=== PATIENT | female | born 1945 | race American Indian/Alaskan Native ===

== ENCOUNTER 2022-07-27 14:45 | Outpatient (CLI) | payer MEDICARE | END 2022-07-27 23:59 | disposition critical access hospital (66) | LOC: EMS 14:45 | DX: R47.01 Aphasia (principal); R29.898 Other symptoms and signs involving the musculoskeletal system | CPT/HCPCS: A0425; A0427 ==

== ENCOUNTER 2022-07-27 15:15 | Emergency (ER) | payer MEDICARE ==
[2022-07-27 15:29] LABS: BASOPHILS % (AUTO) 0.3 %; EOSINOPHILS % (AUTO) 0.5 %; HCT - HEMATOCRIT 44.1 % (37.0-47.0); HGB - HEMOGLOBIN 13.9 g/dL (12.0-16.0); LYMPHOCYTES # (AUTO) 1.6 10^3/uL (1.5-3.5); LYMPHOCYTES % (AUTO) 21.5 %; MEAN CORPUSCULAR HEMOGLOBIN 28.5 pg (27.0-31.0); MEAN CORPUSCULAR HGB CONC 31.5 g/dL (32.0-36.0); MEAN CORPUSCULAR VOLUME 90.4 fL (81.0-99.0); MONOCYTES # (AUTO) 0.6 10^3/uL (0.0-1.0); MONOCYTES % (AUTO) 7.6 %; NEUTROPHILS # (AUTO) 5.3 10^3/uL (1.5-6.6); NEUTROPHILS % (AUTO) 69.8 %; PLT - PLATELET COUNT 265 10^3/uL (130-450); RED BLOOD COUNT 4.88 10^6/uL (4.20-5.40); RED CELL DISTRIBUTION WIDTH 13.2 % (12.0-15.0); WHITE BLOOD COUNT 7.6 x10^3/uL (4.8-10.8)
--- NOTE | 2022-07-27 15:32 | ED Physician Documentation ---
PD HPI FOCAL NEURO - Stated complaint Stated Complaint: CODE STROKE - History obtained from History obtained from: EMS - Additional information Additional information: 77-year-old woman with unknown but reportedly negative medical history was last seen normal by her at 1330 today. He found her again at 2 PM with significant right-sided deficits and aphasia. All of the initial history is from EMS due to aphasia. Review of Systems Unable to obtain: Confused PD PAST MEDICAL HISTORY - Past Surgical History Past Surgical History: Yes - Present Medications Home Medications: Ambulatory Orders Medication Instructions Recorded Confirmed Hydrocodone/Acetaminophen [[place] 1 each PO Q6H PRN #20 tablet 01/15/15 5-325 Tablet] - Allergies Allergies/Adverse Reactions: Allergies Allergy/AdvReac Type Severity Reaction Status Date / Time soy Allergy Cramps Verified 01/15/15 18:12 - Social History Does the pt smoke?: No Smoking Status: Never smoker Does the pt drink ETOH?: No Does the pt have substance abuse?: No PD ED PE NORMAL - Vitals Vital signs reviewed: Yes - General General: Other (She mumbles when I ask her name. She has right-sided hemineglect. Does not look to the right past midline.) - Neck Neck: Supple, no meningeal sign, No bony TTP - Cardiac Cardiac: RRR, No murmur - Respiratory Respiratory: No respiratory distress, Clear bilaterally - Abdomen Abdomen: Non tender - Back Back: No CVA TTP, No spinal TTP - Derm Derm: Normal color, Warm and dry - Extremities Extremities: No edema, No calf tenderness / cord NIHSS - Time Time: 15:20 - Level of Consciousness Level of consciousness: (0) Alert, Keenly responsive LOC Questions: (2) Answers neither correct LOC Commands: (0) Performs both correctly - Gaze Best Gaze: (1) Partial gaze palsy - Visual Visual: (2) Complete Hemianopia - Facial Palsy Facial Palsy: (2) Partial paralysis - Motor Arms (both separate) Motor Arm (right): (2) Some effort against gravity Motor Arm (left): (0) No drift - Motor Legs (both separate) Motor Leg (right): (3) No effort against gravity Motor Leg (left): (0) No drift - Limb Ataxia Limb Ataxia: (0) Absent - Sensory Sensory: (2) Seyrhp-vf-eklgr loss - Best Language Best Language: (2) Severe aphasia - Dysarthria Dysarthria: (0) Normal - Extinction and Inattention (formally neg Extinction and inattention: (2) Profound diana-inattention or extinction to more than one modality - Total Score/Results Total Score/Result: 18 Results - Vitals Vitals: Vital Signs - 24 hr 07/27/22 07/27/22 07/27/22 15:32 17:39 19:00 Temperature 36.1 C L 37.2 C Heart Rate 72 79 87 Respiratory 20 23 20 Rate Blood Pressure 162/77 H 175/80 H 187/104 H O2 Saturation 100 99 100 Oxygen O2 Source Room air - EKG (time done) 1546 Rate: Rate (enter#) (75) Rhythm: NSR [place]: Normal Intervals: Normal DC, Prolonged QT QRS: Normal Ischemia: Normal ST segments - Labs Labs: Laboratory Tests 07/27/22 07/27/22 07/27/22 15:23 15:23 16:11 WBC 7.6 RBC 4.88 Hgb 13.9 Hct 44.1 MCV 90.4 MCH 28.5 MCHC 31.5 L RDW 13.2 Plt Count 265 MPV 9.0 Neut # (Auto) 5.3 Lymph # (Auto) 1.6 [place] # (Auto) 0.6 Eos # (Auto) 0.0 Baso # (Auto) 0.0 Absolute Nucleated RBC 0.00 Nucleated RBC % 0.0 INR (Fingerstick) Sodium 138 Potassium 3.9 Chloride 103 Carbon Dioxide 24 Anion Gap 11.0 BUN 10 Creatinine 0.5 Estimated GFR (MDRD) 120 Glucose 110 H Calcium 9.2 Total Bilirubin 0.7 AST 18 ALT 15 Alkaline Phosphatase 66 Total Protein 7.5 Albumin 4.2 Globulin 3.3 Albumin/Globulin Ratio 1.3 Lipase 35 Nasal Adenovirus (PCR) NOT DETECTED Nasal B. parapertussis DNA (PCR) NOT DETECTED Nasal Coronavir 229E PCR NOT DETECTED Nasal Coronavir HKU1 PCR NOT DETECTED Nasal Coronavir NL63 PCR NOT DETECTED Nasal Coronavir OC43 PCR NOT DETECTED Nasal Enterovir/Rhinovir PCR NOT DETECTED Nasal Influenza B PCR NOT DETECTED Nasal Influenza A PCR NOT DETECTED Nasal Parainfluen 1 PCR NOT DETECTED Nasal Parainfluen 2 PCR NOT DETECTED Nasal Parainfluen 3 PCR NOT DETECTED Nasal Parainfluen 4 PCR NOT DETECTED Nasal RSV (PCR) NOT DETECTED Nasal B.pertussis DNA PCR NOT DETECTED Nasal C.pneumoniae (PCR) NOT DETECTED [place] Human Metapneumo PCR NOT DETECTED Nasal M.pneumoniae (PCR) NOT DETECTED Nasal SARS-CoV-2 (PCR) NOT DETECTED 07/27/22 17:14 WBC RBC Hgb Hct MCV MCH MCHC RDW Plt Count MPV Neut # (Auto) Lymph # (Auto) [place] # (Auto) Eos # (Auto) Baso # (Auto) Absolute Nucleated RBC Nucleated RBC % INR (Fingerstick) 1.0 Sodium Potassium Chloride Carbon Dioxide Anion Gap BUN Creatinine Estimated GFR (MDRD) Glucose Calcium Total Bilirubin AST ALT Alkaline Phosphatase Total Protein Albumin Globulin Albumin/Globulin Ratio Lipase Nasal Adenovirus (PCR) Nasal B. parapertussis DNA (PCR) Nasal Coronavir 229E PCR Nasal Coronavir HKU1 PCR Nasal Coronavir NL63 PCR Nasal Coronavir OC43 PCR Nasal Enterovir/Rhinovir PCR Nasal Influenza B PCR Nasal Influenza A PCR Nasal Parainfluen 1 PCR Nasal Parainfluen 2 PCR Nasal Parainfluen 3 PCR Nasal Parainfluen 4 PCR Nasal RSV (PCR) Nasal B.pertussis DNA PCR Nasal C.pneumoniae (PCR) [place] Human Metapneumo PCR Nasal M.pneumoniae (PCR) Nasal SARS-CoV-2 (PCR) PD Medical Decision Making - ED course ED course: 77-year-old woman with a debilitating stroke comes in with an NIH stroke scale of 18. Normal blood sugar prehospital. I tried calling the phone number on the chart, but it went to voicemail and I left a voicemail to have her call us back but since he was not immediately available and her head CT was without contraindication to TN K and there is nothing in the history to suggest a contraindication to TN K we are going to go ahead with thrombolytics noting that I cannot obtain consent but given the time sensitive nature of this therapy I do think it is indicated. Spoke with Dr. Logan Rebollar of telestroke at 1550. He agrees with going ahead with TN K without formal consent given the urgency. TN K bolus pushed at 1554. Dr. Rebollar also tried to call the , was not able to get a hold of Him. Recommends transfer to a stroke center and we started the process of that but given current hospital capacity issues and the fact that she is not an IR candidate, we are fearful there may be a prolonged delay for transfer. In the meantime if she were to still be boarding in the department at that time she would need a repeat head CT in 24 hours, sooner for clinical changes. We did discuss with Dr. Rebollar that she does have a 90% left carotid stenosis, he says the management of this is not urgent. now at bedside (1650) and we discussed the pros and cons of tPA and although it has already been given he agrees with the decision we made. I discussed with him that we are looking for stroke center bed and he voices understanding. He confirms she takes homeopathic supplements but no prescribed medications and no anticoagulants. She was excepted graciously by Dr. Rasheed at [facility] at 1930 hrs. At this point her blood pressure has trended up over the 180 systolic goal so a push of labetalol 20 mg was ordered. - Critical Care Time(min): 45 Time Includes: Direct patient care, Review records, Reassess patient, Document care, Coordinate care, Medical consult Data interpretation: Labs, Pulse ox Procedures included in critical care time: Peripheral IV Procedures excluded from critical care time: EKG Departure - Departure Disposition: 02 Transfer Acute Care Hosp Clinical Impression: Cerebrovascular accident (CVA), Left carotid stenosis Condition: Critical
[2022-07-27] MEDS ORDERED: TENECTEPLASE 50 MG/10 ML VIAL IVP STA (15:44)
[2022-07-27 15:46] LABS: ALBUMIN 4.2 g/dL (3.2-5.5); ALBUMIN/GLOBULIN RATIO 1.3 (1.0-2.2); BILIRUBIN,TOTAL 0.7 mg/dL (0.2-1.0); CALCIUM 9.2 mg/dL (8.5-10.3); CREATININE 0.5 mg/dL (0.4-1.0); POTASSIUM 3.9 mmol/L (3.5-5.0); TOTAL PROTEIN 7.5 g/dL (6.7-8.2)
--- NOTE | 2022-07-27 15:49 | CT Report ---
PROCEDURE: Head W/O Stroke Protocol INDICATIONS: Neuro deficit, acute, stroke suspected TECHNIQUE: Noncontrast 4.5 mm thick angled axial sections acquired from the foramen magnum to the vertex. For r adiation dose reduction, the following was used: automated exposure control, adjustment of mA and/or kV according to patient size. COMPARISON: None FINDINGS: Image quality: Excellent. CSF spaces: Basal cisterns are patent. No extra-axial fluid collections. The ventricles are symmet catrachita in size and shape. Brain: No intracranial bleeds or masses. There is cerebral volume loss for age, with resultant vent ricular and sulcal prominence. There are periventricular and deep white matter chronic small vessel ischemic changes. There is intracranial internal carotid artery atherosclerosis. Skull and face: Calvarium and visualized facial bones appear intact, without suspicious lesions. Sinuses: Visualized sinuses and mastoids are clear. IMPRESSION: 1. No gross CT evidence of acute intracranial abnormalities. No contraindication for TPA therapy. 2. Age-related mild volume loss and moderate White matter chronic small vessel ischemic changes. Findings were reported to Dr. Liu in the ER at 3:48 PM on 07/27/2022. Reviewed by: Daniel Chilel MD on 07/27/2022 3:48 PM PST Approved by: Daniel Chilel MD on 07/27/2022 3:48 PM PST Station ID: [id number]
[2022-07-27] MEDS ORDERED: iohexoL-300 100 ML VIAL ONE (15:55)
--- NOTE | 2022-07-27 15:57 | CT Report ---
PROCEDURE: ANGIO NECK W INDICATIONS: CVA CONTRAST: 80ml omni 300 TECHNIQUE: After the administration of intravenous contrast, 1.5 mm axial sections acquired from the aortic arch to the [place] of [place]. Coronal 3-D maximum intensity projection (MIP) and/or volume rendering ref ormats were then performed. For radiation dose reduction, the following was used: automated exposur e control, adjustment of mA and/or kV according to patient size. COMPARISON: None. FINDINGS: Image quality: Excellent. Carotid system: The great vessels demonstrate a conventional anatomy as they arise from the aortic a rch. The origins of the common carotid arteries appear patent. The common carotid arteries demonstr ate normal calibers and courses. Moderate amount of atherosclerotic calcifications are seen involving origin of left internal carotid artery with focal high-grade greater than 90% stenosis at left inter nal carotid artery origin. More distal bilateral internal carotid arteries demonstrate normal caliber and course. Posterior circulation: The origins of the vertebral arteries appear patent. The more superior porti ons of the vertebral arteries demonstrate normal course and caliber. They join to form a normal appe aring basilar artery. Soft tissues: Visualized neck soft tissues demonstrate no suspicious abnormalities. The thyroid is normal in size. Bilateral small hypodense thyroid nodules are noted.. Bones: No suspicious bony lesions. Visualized cervical spine appears normally aligned. IMPRESSION: 1. Significant atherosclerotic plaque involving left carotid artery bifurcation and origin of left in ternal carotid artery with focal greater than 90% stenosis involving left internal carotid artery kris [place]. 2. Moderate distal bilateral internal carotid arteries show no hemodynamically significant stenosis. 3. No hemodynamically significant stenosis or aneurysm is seen in bilateral vertebral arteries. The estimate of stenosis included in the report of the imaging study was calculated using the NASCET method CLINICAL RECOMMENDATION STATEMENTS: In patients <35 years with an ITN detected on CT, MRI, or extrathyroidal ultrasound, the Committee re commends further evaluation with dedicated thyroid ultrasound if the nodule is "e1 cm and has no susp icious imaging features, and if the patient has normal life expectancy. In patients "e35 years with an ITN detected on CT, MRI, or extrathyroidal ultrasound, the Committee r ecommends further evaluation with dedicated thyroid ultrasound if the nodule is "e1.5 cm and has no s uspicious imaging features, and if the patient has normal life expectancy. (ACR, 2014) Reviewed by: Daniel Chilel MD on 07/27/2022 3:56 PM PST Approved by: Daniel Chilel MD on 07/27/2022 3:56 PM PST Station ID: [id number]
--- NOTE | 2022-07-27 15:59 | CT Report ---
PROCEDURE: ANGIO HEAD W/WO INDICATIONS: CVA CONTRAST: 80ml omni 300 TECHNIQUE: Precontrast 4.5 mm thick angled axial sections acquired from the foramen magnum to the vertex. Afte r the administration of intravenous contrast, 1 mm thick sections acquired through the [place] of [place] is. Postcontrast 4.5 mm thick sections then re-acquired from the foramen magnum to the vertex. 3-di mensional qbxoflh-kltdbsrzc-fwxthqpllx (MIP) and/or volume rendering reformats were acquired of the c entral intracranial vasculature. For radiation dose reduction, the following was used: automated ex posure control, adjustment of mA and/or kV according to patient size. COMPARISON: None FINDINGS: Image quality: Excellent. Anterior circulation: Intracranial internal carotid arteries are normal in size and flow. The flow within the paired anterior cerebral arteries is normal and symmetric. The flow within the middle cer ebral arteries is normal and symmetric. The anterior communicating artery is seen. No aneurysms are seen. Posterior circulation: Visualized portions of the vertebral arteries demonstrate normal caliber, and join to form a normal appearing basilar artery. Flow within the posterior cerebral arteries is norm al and symmetric. No aneurysms are seen. CSF spaces: Ventricles are normal in size and shape. Basal cisterns are patent. No extra-axial flu id collections. Brain: No midline shift. No intracranial bleeds or masses. [place]-white matter interface appears int act. Skull and face: Calvarium and facial bones appear intact, without suspicious lesions. Sinuses: Visualized sinuses and mastoids are clear. IMPRESSION: No hemodynamically significant stenosis or aneurysm is seen in visualized intracranial circulation. Reviewed by: Daniel Chilel MD on 07/27/2022 3:58 PM PST Approved by: Daniel Chilel MD on 07/27/2022 3:58 PM PST Station ID: [id number]
[2022-07-27 17:16] LABS: B. PARAPERTUSSIS- RESP PCR PAN NOT DETECTED; B. PERTUSSIS- RESP PCR PANEL NOT DETECTED; C. PNEUMONIAE- RESP PCR PANEL NOT DETECTED; CORONAVIRUS 229E-RESP PCR NOT DETECTED; CORONAVIRUS HKU1-RESP PCR NOT DETECTED; CORONAVIRUS NL63-RESP PCR NOT DETECTED; CORONAVIRUS OC43-RESP PCR NOT DETECTED; HUMAN METAPNEUMOVIRUS NOT DETECTED; INFLUENZA A- RESP PCR PANEL NOT DETECTED; INFLUENZA B - RESP PCR PANEL NOT DETECTED; M. PNEUMONIAE- RESP PCR PANEL NOT DETECTED; PARAINFLUENZA VIRUS 1 NOT DETECTED; PARAINFLUENZA VIRUS 2 NOT DETECTED; PARAINFLUENZA VIRUS 3 NOT DETECTED; PARAINFLUENZA VIRUS 4 NOT DETECTED; RHINOVIRUS/ENTEROVIRUS NOT DETECTED; RSV- RESP PCR PANEL NOT DETECTED; SARS-CoV-2 -RESP PCR PANEL NOT DETECTED
[2022-07-27] MEDS ORDERED: iohexoL-300 100 ML VIAL IVP ONE (18:31)
[2022-07-27] MEDS ORDERED: LORazepam 2 MG/ML VIAL IVP STA (18:44)
[2022-07-27] MEDS ORDERED: LABETALOL 20 MG/4 ML SYRINGE IVP STA (19:31)
[2022-07-27 20:31] VITALS: BP 150/93
== END 2022-07-27 20:54 | disposition short-term general hospital (02) ==
LOC: EDUNIT# → ED 15:15
DX: I63.9 Cerebral infarction, unspecified (principal); R47.01 Aphasia; I65.22 Occlusion and stenosis of left carotid artery; R29.718 NIHSS score 18; Z20.822 Contact with and (suspected) exposure to COVID-19
CPT/HCPCS: 36415; 37195; 70450; 70496; 70498; 80053; 83690; 85025; 85610; 87633; 93005; 96374; 96375; 99291; J2060; J3101; Q9967

== ENCOUNTER 2023-05-14 17:58 | Outpatient (CLI) | payer MEDICARE | END 2023-05-14 17:59 | disposition short-term general hospital (02) | LOC: EMS 17:58 | DX: R06.02 Shortness of breath (principal); I48.91 Unspecified atrial fibrillation; R60.0 Localized edema | CPT/HCPCS: A0425; A0429 ==

== ENCOUNTER 2023-06-04 12:14 | Outpatient (CLI) | payer MEDICARE | END 2023-06-04 12:15 | disposition critical access hospital (66) | LOC: EMS 12:14 | DX: R53.1 Weakness (principal); R20.8 Other disturbances of skin sensation | CPT/HCPCS: A0425; A0429 ==

== ENCOUNTER 2023-06-04 12:49 | Emergency (ER) | payer MEDICARE ==
[2023-06-04] MEDS ORDERED: diltiaZEM INJ 5 MG/ML VIAL IVP STA (12:58)
--- NOTE | 2023-06-04 13:02 | ED Physician Documentation ---
PD HPI LOWER EXT INJURY - Stated complaint Stated Complaint: L LEG PX - History obtained from History obtained from: Patient, EMS - Additional information Additional information: 78-year-old woman with history of stroke causing aphasia and some right-sided deficits. Recently reportedly hospitalized in [place] for new onset A-fib, but has been noncompliant with her medication regimen as she is a computer aided design technician. She comes in by ambulance for numbness of the left leg starting around 7 AM. She has difficulty moving it too. History is somewhat limited because of her aphasia. She gives variable answers as to whether or not her leg is painful. PD PAST MEDICAL HISTORY - Past Surgical History Past Surgical History: Yes - Present Medications Home Medications: Ambulatory Orders Medication Instructions Recorded Confirmed Aspirin EC [Ecotrin] 81 mg PO DAILY 06/04/23 06/04/23 Furosemide [Lasix] 20 mg PO DAILY 06/04/23 06/04/23 Lisinopril [Zestril] 2.5 mg PO DAILY 06/04/23 06/04/23 Metoprolol Succinate 100 mg PO BID 06/04/23 06/04/23 Spironolactone [Aldactone] 25 mg PO DAILY 06/04/23 06/04/23 - Allergies Allergies/Adverse Reactions: Allergies Allergy/AdvReac Type Severity Reaction Status Date / Time soy Allergy Cramps Verified 06/04/23 13:00 - Social History Does the pt smoke?: No Smoking Status: Never smoker Does the pt drink ETOH?: No Does the pt have substance abuse?: No PD ED PE NORMAL - Vitals Vital signs reviewed: Yes (She is in rapid A-fib) - General General: Other (History is limited because of moderate aphasia) - HEENT HEENT: PERRL, EOMI, Other (Symmetric smile) - Cardiac Cardiac: Other (Rapid and irregular without murmur) - Respiratory Respiratory: No respiratory distress, Clear bilaterally - Abdomen Abdomen: Non tender - Back Back: No CVA TTP, No spinal TTP - Derm Derm: Normal color, Warm and dry - Extremities Extremities: Other (Pallor of the left leg up to above the knee, no palpable pedal pulses, nor are they dopplerable. She does have diminished sensation from the knee down but it does not seem absent.) Results - Vitals Vitals: Vital Signs - 24 hr 06/04/23 06/04/23 06/04/23 13:00 14:02 14:30 Temperature 36.7 C Heart Rate 125 H 87 84 Respiratory 23 24 17 Rate Blood Pressure 167/121 H 146/107 H 119/104 H O2 Saturation 98 98 95 Oxygen O2 Source Room air - EKG (time done) 1346 EKG releavant findings:: EKG personally interpreted by author of this note. Relevant findings are: Rate: Rate (enter#) (86) Rhythm: Atrial fibrillation [place]: Normal QRS: LVH Ischemia: Normal ST segments - Labs Labs: Laboratory Tests 06/04/23 06/04/23 06/04/23 13:13 13:13 13:13 WBC 8.3 RBC 4.89 Hgb 13.8 Hct 43.9 MCV 89.8 MCH 28.2 MCHC 31.4 L RDW 13.8 Plt Count 284 MPV 9.2 Neut # (Auto) 7.1 H Lymph # (Auto) 0.8 L [place] # (Auto) 0.3 Eos # (Auto) 0.0 Baso # (Auto) 0.0 Absolute Nucleated RBC 0.00 Nucleated RBC % 0.0 PT 13.7 H INR 1.3 H Sodium 135 Potassium 4.4 Chloride 102 Carbon Dioxide 23 Anion Gap 10.0 BUN 13 Creatinine 0.7 Estimated GFR (MDRD) 81 L Glucose 122 H Calcium 9.6 SARS-CoV-2 (PCR) 06/04/23 13:30 WBC RBC Hgb Hct MCV MCH MCHC RDW Plt Count MPV Neut # (Auto) Lymph # (Auto) [place] # (Auto) Eos # (Auto) Baso # (Auto) Absolute Nucleated RBC Nucleated RBC % PT INR Sodium Potassium Chloride Carbon Dioxide Anion Gap BUN Creatinine Estimated GFR (MDRD) Glucose Calcium SARS-CoV-2 (PCR) NOT DETECTED PD Medical Decision Making - ED course Complexity details: reviewed results (CBC unremarkable. INR 1.3. BMP unremarkable save modest hyperglycemia at 122, COVID testing negative.) ED course: 78-year-old woman with an ischemic leg seen immediately upon ambulance arrival with clinical diagnosis and I asked our health heating unit mechanic to call [facility] where she was recently hospitalized for vascular surgery consultation and likely immediate transfer. Update: 2:17 PM. We have repaged vascular [facility] a couple of times as I have not heard back from them. She is on a heparin drip. Now looking like she is in more pain and 1 mg of IV Dilaudid ordered. Graciously excepted to [facility] Perez by Dr. Eriberto Key 2:28 PM. Cannot send her quite yet until they confirmed the bed but I do anticipate flying her given her acuity. - Critical Care Time(min): 35 Time Includes: Direct patient care, Review records, Reassess patient, Document care, Coordinate care, Medical consult, Family consult for tx dec Data interpretation: Labs, Pulse ox Procedures included in critical care time: Peripheral IV Procedures excluded from critical care time: EKG Departure - Departure Disposition: 02 Transfer Acute Care Hosp Clinical Impression: Ischemic leg, Rapid atrial fibrillation, Medical non-compliance Condition: Good Record reviewed to determine appropriate education?: Yes Forms: PCP List Discharge Date/Time: 06/04/23 15:12
[2023-06-04 13:35] LABS: BASOPHILS % (AUTO) 0.4 %; EOSINOPHILS % (AUTO) 0.1 %; HCT - HEMATOCRIT 43.9 % (37.0-47.0); HGB - HEMOGLOBIN 13.8 g/dL (12.0-16.0); LYMPHOCYTES # (AUTO) 0.8 10^3/uL (1.5-3.5); MEAN CORPUSCULAR HEMOGLOBIN 28.2 pg (27.0-31.0); MEAN CORPUSCULAR HGB CONC 31.4 g/dL (32.0-36.0); MEAN CORPUSCULAR VOLUME 89.8 fL (81.0-99.0); MEAN PLATELET VOLUME 9.2 fL (7.9-10.8); MONOCYTES # (AUTO) 0.3 10^3/uL (0.0-1.0); MONOCYTES % (AUTO) 3.9 %; NEUTROPHILS # (AUTO) 7.1 10^3/uL (1.5-6.6); NEUTROPHILS % (AUTO) 85.2 %; PLT - PLATELET COUNT 284 10^3/uL (130-450); RED BLOOD COUNT 4.89 10^6/uL (4.20-5.40); RED CELL DISTRIBUTION WIDTH 13.8 % (12.0-15.0); WHITE BLOOD COUNT 8.3 x10^3/uL (4.8-10.8)
[2023-06-04 13:40] LABS: INR 1.3 (0.8-1.2); PT - PROTHROMBIN TIME 13.7 secs (9.9-12.6)
[2023-06-04 13:51] LABS: CALCIUM 9.6 mg/dL (8.5-10.3); CREATININE 0.7 mg/dL (0.6-1.3); POTASSIUM 4.4 mmol/L (3.5-4.5)
[2023-06-04] MEDS ORDERED: HEPARIN 25000UNITS/500ML (D5W) 25,000 UNIT/500 ML BAG IV SCH (14:00)
[2023-06-04] MEDS ORDERED: HYDROmorphone 1 MG/ML CARPUJECT IVP STA (14:17)
[2023-06-04 15:10] VITALS: BP 119/104; O2SAT 95
== END 2023-06-04 15:12 | disposition short-term general hospital (02) ==
LOC: EDUNIT# → ED 12:49
DX: I70.222 Atherosclerosis of native arteries of extremities with rest pain, left leg (principal); I48.91 Unspecified atrial fibrillation; Z91.148 Patient's other noncompliance with medication regimen for other reason; Z20.822 Contact with and (suspected) exposure to COVID-19
CPT/HCPCS: 36415; 80048; 85025; 85610; 87635; 93005; 96374; 96375; 99285; 99291; J1170

== ENCOUNTER 2023-07-03 08:00 | Outpatient (CLI) | payer MEDICARE ==
[2023-07-03 16:56] LABS: BASOPHILS % (AUTO) 0.4 %; EOSINOPHILS # (AUTO) 0.1 10^3/uL (0.0-0.7); EOSINOPHILS % (AUTO) 1.6 %; HCT - HEMATOCRIT 39.8 % (37.0-47.0); HGB - HEMOGLOBIN 12.4 g/dL (12.0-16.0); LYMPHOCYTES % (AUTO) 27.8 %; MEAN CORPUSCULAR HEMOGLOBIN 28.2 pg (27.0-31.0); MEAN CORPUSCULAR HGB CONC 31.2 g/dL (32.0-36.0); MEAN CORPUSCULAR VOLUME 90.7 fL (81.0-99.0); MEAN PLATELET VOLUME 9.3 fL (7.9-10.8); MONOCYTES # (AUTO) 0.4 10^3/uL (0.0-1.0); MONOCYTES % (AUTO) 5.8 %; NEUTROPHILS # (AUTO) 4.5 10^3/uL (1.5-6.6); NEUTROPHILS % (AUTO) 63.7 %; PLT - PLATELET COUNT 298 10^3/uL (130-450); RED BLOOD COUNT 4.39 10^6/uL (4.20-5.40); RED CELL DISTRIBUTION WIDTH 15.6 % (12.0-15.0)
[2023-07-03 17:23] LABS: ALBUMIN 3.8 g/dL (3.2-5.5); ALBUMIN/GLOBULIN RATIO 1.4 (1.0-2.2); BILIRUBIN,TOTAL 0.5 mg/dL (0.2-1.0); CREATININE 0.5 mg/dL (0.6-1.3); POTASSIUM 3.7 mmol/L (3.5-4.5); TOTAL PROTEIN 6.5 g/dL (6.4-8.9)
== END 2023-07-03 23:59 | disposition home or self-care (01) ==
LOC: LAB.R 08:00
PROVIDERS: ATTEND Registered Nurse
DX: I10 Essential (primary) hypertension (principal); Z11.9 Encounter for screening for infectious and parasitic diseases, unspecified; D64.9 Anemia, unspecified
CPT/HCPCS: 80053; 85025

== ENCOUNTER 2023-07-03 09:12 | Outpatient (CLI) | payer MEDICARE | END 2023-07-03 09:13 | disposition critical access hospital (66) | LOC: EMS 09:12 | DX: T82.524A Displacement of infusion catheter, initial encounter (principal); R41.0 Disorientation, unspecified | CPT/HCPCS: A0425; A0429 ==

== ENCOUNTER 2023-07-03 10:53 | Emergency (ER) | payer MEDICARE ==
--- NOTE | 2023-07-03 11:52 | ED Physician Documentation ---
History of Present Illness - Stated complaint Stated Complaint: PICC LINE OUT - Chief complaint Chief Complaint: General - History obtained from History obtained from: Family, EMS - Additonal information Additional information: Patient is a 78-year-old female from [facility] with a history of a CVA presenting for evaluation of a PICC line that was pulled out last night. Patient is reportedly receiving antibiotics for an infection in her L hip area and was discharged yesterday from [place]. She arrived to [facility] in the afternoon and sometime overnight pulled out her PICC line. It was in the left arm. Patient has aphasia related to a prior stroke and thus is not able to provide any meaningful history. is at the bedside. Review of Systems Unable to obtain: Other (Aphasia) PD PAST MEDICAL HISTORY - Past Medical History Past Medical History: Yes Cardiovascular: Congestive heart failure, Hypertension, High cholesterol, Deep vein thrombosis, Atrial fibrillation, Valve disorder Respiratory: None Neuro: CVA HEENT: None - Past Surgical History Past Surgical History: Yes - Present Medications Home Medications: Ambulatory Orders Medication Instructions Recorded Confirmed Aspirin EC [Ecotrin] 81 mg PO DAILY 06/04/23 06/04/23 Furosemide [Lasix] 20 mg PO DAILY 06/04/23 06/04/23 Lisinopril [Zestril] 2.5 mg PO DAILY 06/04/23 07/03/23 Metoprolol Succinate 100 mg PO BID 06/04/23 07/03/23 Spironolactone [Aldactone] 25 mg PO DAILY 06/04/23 07/03/23 Acetaminophen [Tylenol] 650 mg PO Q6H PRN 07/03/23 07/03/23 Atorvastatin [Lipitor] 40 mg ORAL DAILY 07/03/23 07/03/23 Bisacodyl Supp [Dulcolax Supp] 10 mg [place] DAILY PRN 07/03/23 07/03/23 Cefepime 1 gm IV Q8HR 07/03/23 07/03/23 Enoxaparin Sodium [Lovenox] 80 mg SQ BID 07/03/23 07/03/23 Mineral Oil [Mineral Oil Enema] 1 ea RC DAILY PRN 07/03/23 07/03/23 No122/Iron/Folic Acid 1 each PO DAILY 07/03/23 07/03/23 [ Multi Tablet] Senna [Senokot] 17.2 mg PO DAILY PRN 07/03/23 07/03/23 Torsemide 10 mg PO DAILY 07/03/23 07/03/23 Warfarin [Coumadin] 7.5 mg PO DAILY 07/03/23 07/03/23 polyethylene glycoL 3350 [Miralax] 17 gm PO DAILY PRN 07/03/23 07/03/23 - Allergies Allergies/Adverse Reactions: Allergies Allergy/AdvReac Type Severity Reaction Status Date / Time soy Allergy Cramps Verified 07/03/23 10:56 - Social History Does the pt smoke?: No Smoking Status: Never smoker Does the pt drink ETOH?: No Does the pt have substance abuse?: No - Immunizations Immunizations are current?: Yes PD ED PE NORMAL - General General: No acute distress, Well developed/nourished, Other (Alert, aphasia) - HEENT HEENT: Atraumatic - Neck Neck: Supple, no meningeal sign - Cardiac Cardiac: RRR - Respiratory Respiratory: No respiratory distress, Clear bilaterally - Abdomen Abdomen: Soft, Non tender - Neuro Neuro: Other (Alert, aphasia) Results - Vitals Vitals: Vital Signs - 24 hr 07/03/23 07/03/23 10:56 13:44 Temperature 36.1 C L Heart Rate 72 96 Respiratory 16 19 Rate Blood Pressure 138/80 H 113/88 H O2 Saturation 97 98 Oxygen O2 Source Room air PD Medical Decision Making - ED course ED course: Patient presenting for PICC line replacement. Receiving IV antibiotics for infected incision to right hip. Vital signs are stable and her at the bedside patient is at her baseline. Anesthesia graciously placed a new PICC line in the left arm and position was confirmed with a chest x-ray. Patient transferred back to [facility]. Departure - Departure Disposition: 01 Home, Self Care Clinical Impression: S/P PICC central line placement Condition: Good Instructions: ED PICC Line Care Follow-Up: MIMA MARC ND [Primary Care Provider] - Comments: A new picc line was placed today. Please follow up with your doctor for further care. Forms: PCP List
--- NOTE | 2023-07-03 13:36 | XRAY Report ---
PROCEDURE: Chest for Line Placement INDICATIONS: PICC line placed TECHNIQUE: One view of the chest was acquired. COMPARISON: None. FINDINGS: Surgical changes and devices: Left upper extremity approach PICC tip projects over the mid SVC. Lungs and pleura: No pleural effusions or pneumothorax. Lungs are clear. Mediastinum: Mediastinal contours appear normal. Heart size is normal. Bones and chest wall: No suspicious bony lesions. Overlying soft tissues appear unremarkable. IMPRESSION: Left upper approach PICC tip projects over the mid SVC. Reviewed by: Tayo العراقي MD on 07/03/2023 1:35 PM PST Approved by: Tayo العراقي MD on 07/03/2023 1:35 PM PST Station ID: [id number]
[2023-07-03 13:50] VITALS: BP 113/88; O2SAT 98
--- NOTE | 2023-07-03 13:54 | ANESTHESIA PROCEDURE NOTE ---
Anesth Central Line Template - Central Line Central Line Preparation: Consent Obtained, Time out completed, Ultrasound used, Sterile prep and drape Central line location: Left Cephalic Central line type: PICC Single Lumen Central line catheter tip site resides: Superior vena cava (SVC) Central line aftercare: Secured (sutured), Placement confirmed (by CXR), No complications, Bundle checklist complete, Pt tolerated well
== END 2023-07-03 14:12 | disposition home or self-care (01) ==
LOC: EDUNIT# → ED 10:53
DX: T82.524A Displacement of infusion catheter, initial encounter (principal); I69.320 Aphasia following cerebral infarction; I11.9 Hypertensive heart disease without heart failure; Z86.718 Personal history of other venous thrombosis and embolism; Z79.01 Long term (current) use of anticoagulants
CPT/HCPCS: 36569; 80053; 85025; 99282; 99285; C1751

== ENCOUNTER 2023-07-03 14:10 | Outpatient (CLI) | payer MEDICARE | END 2023-07-03 14:11 | LOC: EMS 14:10 | PROVIDERS: ATTEND Emergency Medicine | DX: R53.1 Weakness (principal) | CPT/HCPCS: A0425; A0428 ==

== ENCOUNTER 2023-07-04 10:02 | Outpatient (CLI) | payer MEDICARE ==
[2023-07-04 10:08] LABS: BASOPHILS % (AUTO) 0.4 %; EOSINOPHILS # (AUTO) 0.2 10^3/uL (0.0-0.7); HGB - HEMOGLOBIN 12.2 g/dL (12.0-16.0); LYMPHOCYTES # (AUTO) 2.2 10^3/uL (1.5-3.5); MEAN CORPUSCULAR HEMOGLOBIN 28.3 pg (27.0-31.0); MEAN CORPUSCULAR HGB CONC 31.3 g/dL (32.0-36.0); MEAN CORPUSCULAR VOLUME 90.5 fL (81.0-99.0); MEAN PLATELET VOLUME 9.3 fL (7.9-10.8); MONOCYTES # (AUTO) 0.6 10^3/uL (0.0-1.0); MONOCYTES % (AUTO) 6.6 %; NEUTROPHILS # (AUTO) 6.5 10^3/uL (1.5-6.6); NEUTROPHILS % (AUTO) 67.7 %; PLT - PLATELET COUNT 282 10^3/uL (130-450); RED BLOOD COUNT 4.31 10^6/uL (4.20-5.40); RED CELL DISTRIBUTION WIDTH 15.9 % (12.0-15.0); WHITE BLOOD COUNT 9.5 x10^3/uL (4.8-10.8)
[2023-07-04 10:25] LABS: ALBUMIN 3.6 g/dL (3.2-5.5); ALBUMIN/GLOBULIN RATIO 1.3 (1.0-2.2); BILIRUBIN,TOTAL 0.5 mg/dL (0.2-1.0); CALCIUM 9.5 mg/dL (8.5-10.3); CREATININE 0.4 mg/dL (0.6-1.3); POTASSIUM 4.1 mmol/L (3.5-4.5); TOTAL PROTEIN 6.3 g/dL (6.4-8.9)
== END 2023-07-04 10:03 | disposition home or self-care (01) ==
LOC: LAB.R 10:02
PROVIDERS: ATTEND Registered Nurse
DX: L08.9 Local infection of the skin and subcutaneous tissue, unspecified (principal); I48.20 Chronic atrial fibrillation, unspecified
CPT/HCPCS: 80053; 85025

== ENCOUNTER 2023-07-11 08:00 | Outpatient (CLI) | payer MEDICARE ==
[2023-07-11 01:30] LABS: BASOPHILS # (AUTO) 0.1 10^3/uL (0.0-0.1); BASOPHILS % (AUTO) 0.5 %; EOSINOPHILS # (AUTO) 0.3 10^3/uL (0.0-0.7); EOSINOPHILS % (AUTO) 2.3 %; HCT - HEMATOCRIT 39.1 % (37.0-47.0); HGB - HEMOGLOBIN 12.1 g/dL (12.0-16.0); LYMPHOCYTES # (AUTO) 2.5 10^3/uL (1.5-3.5); LYMPHOCYTES % (AUTO) 21.5 %; MEAN CORPUSCULAR HEMOGLOBIN 28.4 pg (27.0-31.0); MEAN CORPUSCULAR HGB CONC 30.9 g/dL (32.0-36.0); MEAN CORPUSCULAR VOLUME 91.8 fL (81.0-99.0); MEAN PLATELET VOLUME 8.9 fL (7.9-10.8); MONOCYTES % (AUTO) 8.4 %; NEUTROPHILS # (AUTO) 7.8 10^3/uL (1.5-6.6); NEUTROPHILS % (AUTO) 66.6 %; PLT - PLATELET COUNT 367 10^3/uL (130-450); RED BLOOD COUNT 4.26 10^6/uL (4.20-5.40); RED CELL DISTRIBUTION WIDTH 15.5 % (12.0-15.0); WHITE BLOOD COUNT 11.7 x10^3/uL (4.8-10.8)
[2023-07-11 01:49] LABS: CALCIUM 9.6 mg/dL (8.5-10.3); CREATININE 0.7 mg/dL (0.6-1.3); POTASSIUM 4.2 mmol/L (3.5-4.5)
== END 2023-07-11 23:59 | disposition home or self-care (01) ==
LOC: LAB.R 08:00
PROVIDERS: ATTEND Registered Nurse
DX: T81.49XD Infection following a procedure, other surgical site, subsequent encounter (principal); B99.8 Other infectious disease
CPT/HCPCS: 80048; 85025

== ENCOUNTER 2023-07-19 08:00 | Outpatient (CLI) | payer MEDICARE ==
[2023-07-19 07:20] LABS: ALBUMIN 3.5 g/dL (3.2-5.5); ALBUMIN/GLOBULIN RATIO 1.3 (1.0-2.2); ALKALINE PHOSPHATASE 83 IU/L (42-121); ALT ALANINE AMINOTRANSFERASE 9 IU/L (10-60); AST ASPARTATE AMINOTRANSFERASE 13 IU/L (10-42); BILIRUBIN,TOTAL 0.4 mg/dL (0.2-1.0); BUN - BLOOD UREA NITROGEN 50 mg/dL (6-20); CALCIUM 9.6 mg/dL (8.5-10.3); CARBON DIOXIDE - CO2 26 mmol/L (21-32); CHLORIDE 105 mmol/L (101-111); CHOL/HDL RATIO 5.3 (<4.4); CHOLESTEROL 181 mg/dL; CREATININE 0.6 mg/dL (0.6-1.3); GFR - MDRD 97 (>89); GLUCOSE 99 mg/dL (74-104); HDL CHOLESTEROL 34 mg/dL; LDL CHOLESTEROL,CALCULATED 112 mg/dL; LDL/HDL RATIO 3.3 (<4.4); POTASSIUM 4.4 mmol/L (3.5-4.5); SODIUM 139 mmol/L (135-145); TOTAL PROTEIN 6.2 g/dL (6.4-8.9); TRIGLYCERIDES 176 mg/dL (48-352); VLDL CHOLESTEROL 35 mg/dL
[2023-07-19 07:33] LABS: THYROID STIMULATING HORMONE 3.34 uIU/mL (0.34-5.60)
== END 2023-07-19 23:59 | disposition home or self-care (01) ==
LOC: LAB.R 08:00
PROVIDERS: ATTEND Registered Nurse
DX: I11.0 Hypertensive heart disease with heart failure (principal); I48.20 Chronic atrial fibrillation, unspecified; I50.43 Acute on chronic combined systolic (congestive) and diastolic (congestive) heart failure; E78.5 Hyperlipidemia, unspecified
CPT/HCPCS: 80053; 80061; 82306; 83721; 84436; 84443

== ENCOUNTER 2023-07-24 08:00 | Outpatient (CLI) | payer MEDICARE ==
[2023-07-24 21:38] LABS: BASOPHILS % (AUTO) 0.5 %; EOSINOPHILS # (AUTO) 0.2 10^3/uL (0.0-0.7); HCT - HEMATOCRIT 38.3 % (37.0-47.0); HGB - HEMOGLOBIN 11.9 g/dL (12.0-16.0); LYMPHOCYTES # (AUTO) 2.5 10^3/uL (1.5-3.5); LYMPHOCYTES % (AUTO) 30.8 %; MEAN CORPUSCULAR HEMOGLOBIN 28.1 pg (27.0-31.0); MEAN CORPUSCULAR HGB CONC 31.1 g/dL (32.0-36.0); MEAN CORPUSCULAR VOLUME 90.3 fL (81.0-99.0); MEAN PLATELET VOLUME 9.4 fL (7.9-10.8); MONOCYTES # (AUTO) 0.5 10^3/uL (0.0-1.0); MONOCYTES % (AUTO) 6.6 %; NEUTROPHILS # (AUTO) 4.9 10^3/uL (1.5-6.6); NEUTROPHILS % (AUTO) 59.6 %; PLT - PLATELET COUNT 274 10^3/uL (130-450); RED BLOOD COUNT 4.24 10^6/uL (4.20-5.40); RED CELL DISTRIBUTION WIDTH 15.5 % (12.0-15.0); WHITE BLOOD COUNT 8.2 x10^3/uL (4.8-10.8)
[2023-07-24 21:48] LABS: CALCIUM 9.4 mg/dL (8.5-10.3); CREATININE 0.4 mg/dL (0.6-1.3); POTASSIUM 3.9 mmol/L (3.5-4.5)
== END 2023-07-24 23:59 | disposition home or self-care (01) ==
LOC: LAB.R 08:00
PROVIDERS: ATTEND Registered Nurse
DX: N18.9 Chronic kidney disease, unspecified (principal)
CPT/HCPCS: 80048; 85025

== ENCOUNTER 2023-07-31 08:00 | Outpatient (CLI) | payer MEDICARE ==
[2023-07-31 21:55] LABS: BASOPHILS % (AUTO) 0.4 %; EOSINOPHILS # (AUTO) 0.2 10^3/uL (0.0-0.7); EOSINOPHILS % (AUTO) 3.3 %; HCT - HEMATOCRIT 38.5 % (37.0-47.0); HGB - HEMOGLOBIN 12.1 g/dL (12.0-16.0); LYMPHOCYTES # (AUTO) 2.8 10^3/uL (1.5-3.5); LYMPHOCYTES % (AUTO) 38.9 %; MEAN CORPUSCULAR HEMOGLOBIN 28.5 pg (27.0-31.0); MEAN CORPUSCULAR HGB CONC 31.4 g/dL (32.0-36.0); MEAN CORPUSCULAR VOLUME 90.6 fL (81.0-99.0); MEAN PLATELET VOLUME 9.3 fL (7.9-10.8); MONOCYTES # (AUTO) 0.6 10^3/uL (0.0-1.0); MONOCYTES % (AUTO) 8.2 %; NEUTROPHILS # (AUTO) 3.6 10^3/uL (1.5-6.6); NEUTROPHILS % (AUTO) 48.9 %; PLT - PLATELET COUNT 298 10^3/uL (130-450); RED BLOOD COUNT 4.25 10^6/uL (4.20-5.40); RED CELL DISTRIBUTION WIDTH 15.7 % (12.0-15.0); WHITE BLOOD COUNT 7.3 x10^3/uL (4.8-10.8)
[2023-07-31 22:22] LABS: CALCIUM 9.1 mg/dL (8.5-10.3); CREATININE 0.6 mg/dL (0.6-1.3)
== END 2023-07-31 23:59 | disposition home or self-care (01) ==
LOC: LAB.R 08:00
PROVIDERS: ATTEND Registered Nurse
DX: T81.49XD Infection following a procedure, other surgical site, subsequent encounter (principal)
CPT/HCPCS: 80048; 85025

== ENCOUNTER 2023-08-06 10:03 | Outpatient (CLI) | payer MEDICARE | END 2023-08-06 23:59 | disposition critical access hospital (66) | LOC: EMS 10:03 | DX: M79.605 Pain in left leg (principal); M79.604 Pain in right leg; Z86.718 Personal history of other venous thrombosis and embolism | CPT/HCPCS: A0425; A0429 ==

== ENCOUNTER 2023-08-06 10:10 | Emergency (ER) | payer MEDICARE ==
--- NOTE | 2023-08-06 11:26 | ED Physician Documentation ---
History of Present Illness - Stated complaint Stated Complaint: PAIN - Chief complaint Chief Complaint: General - History obtained from History obtained from: Patient, EMS - Additonal information Additional information: Patient is unable to give any history. She states she does not know why she is in the emergency department. EMS states that she was sent here to rule out DVT in the right lower extremity. Patient has a history of dementia, lives at a retirement, is on warfarin. She tested positive for COVID a few days ago. She often has general body pain. She cries out whenever she is touched in the emergency department. There are no known falls. Patient denies any headache or vomiting. There is no reports of seizures, falls or headaches. No other history is available. Review of Systems Unable to obtain: Dementia Constitutional: denies: Fever GI: denies: Vomiting PD PAST MEDICAL HISTORY - Past Medical History Past Medical History: Yes Cardiovascular: Congestive heart failure, Hypertension, High cholesterol, Deep vein thrombosis, Atrial fibrillation, Valve disorder Respiratory: None Neuro: Dementia, CVA HEENT: None - Past Surgical History Past Surgical History: Yes - Present Medications Home Medications: Ambulatory Orders Medication Instructions Recorded Confirmed Metoprolol Succinate 100 mg PO BID 06/04/23 08/06/23 Spironolactone [Aldactone] 25 mg PO DAILY 06/04/23 08/06/23 Acetaminophen [Tylenol] 650 mg PO Q6H PRN 07/03/23 08/06/23 Enoxaparin Sodium [Lovenox] 80 mg SQ BID 07/03/23 07/03/23 Mineral Oil [Mineral Oil Enema] 1 ea RC DAILY PRN 07/03/23 08/06/23 No122/Iron/Folic Acid 1 each PO DAILY 07/03/23 08/06/23 [ Multi Tablet] Senna [Senokot] 17.2 mg PO DAILY PRN 07/03/23 08/06/23 Torsemide 10 mg PO DAILY 07/03/23 08/06/23 Warfarin [Coumadin] 7.5 mg PO DAILY 07/03/23 08/06/23 polyethylene glycoL 3350 [Miralax] 17 gm PO DAILY PRN 07/03/23 08/06/23 Atorvastatin Calcium 1 tab PO DAILY 08/06/23 08/06/23 Bisacodyl Supp [Dulcolax Supp] 1 applic MS PRN PRN 08/06/23 08/06/23 Lisinopril [Zestril] 1 tab PO DAILY 08/06/23 08/06/23 Nirmatrelvir/Ritonavir [Paxlovid 1 tab PO DAILY 08/06/23 08/06/23 300-100 mg Dose Pack] guaiFENesin [Chest Congestion 1 ml PO PRN PRN 08/06/23 08/06/23 Relief] - Allergies Allergies/Adverse Reactions: Allergies Allergy/AdvReac Type Severity Reaction Status Date / Time soy Allergy Cramps Verified 08/06/23 10:37 - Social History Does the pt smoke?: No Smoking Status: Never smoker Does the pt drink ETOH?: No Does the pt have substance abuse?: No - Immunizations Immunizations are current?: Yes - POLST Patient has POLST: Yes PD ED PE NORMAL - Vitals Vital signs reviewed: Yes - General General: No acute distress, Well developed/nourished, Other (Alert, oriented to person only) - HEENT HEENT: PERRL, Moist mucous membranes - Neck Neck: Supple, no meningeal sign - Cardiac Cardiac: RRR - Respiratory Respiratory: No respiratory distress, Clear bilaterally - Abdomen Abdomen: Soft, Non tender, Non distended - Derm Derm: Warm and dry - Extremities Extremities: Other (No significant swelling in either leg, legs are symmetrical. No specific calf tenderness or cord. Patient in general screams when she is touched.) - Neuro Neuro: Other (alert, at normal baseline) Eye Opening: Spontaneous Motor: Obeys Commands Verbal: Confused GCS Score: 14 Results - Vitals Vitals: Vital Signs - 24 hr 08/06/23 08/06/23 08/06/23 10:26 13:04 13:40 Temperature 36.3 C L Heart Rate 122 H 106 H 110 H Respiratory 18 16 16 Rate Blood Pressure 133/93 H 115/96 H 109/68 O2 Saturation 96 96 98 08/06/23 13:50 Temperature 36.2 C L Heart Rate 107 H Respiratory 18 Rate Blood Pressure 116/96 H O2 Saturation 96 Oxygen O2 Source Room air - Labs Labs: Laboratory Tests 08/06/23 08/06/23 08/06/23 11:30 11:30 11:30 WBC 5.4 RBC 4.60 Hgb 12.9 Hct 41.8 MCV 90.9 MCH 28.0 MCHC 30.9 L RDW 15.9 H Plt Count 297 MPV 9.2 Neut # (Auto) 2.1 Lymph # (Auto) 2.6 Bowie # (Auto) 0.5 Eos # (Auto) 0.2 Baso # (Auto) 0.0 Absolute Nucleated RBC 0.00 Nucleated RBC % 0.0 PT 18.6 H INR 1.7 H Sodium 139 Potassium 4.0 Chloride 102 Carbon Dioxide 27 Anion Gap 10.0 BUN 30 H Creatinine 0.6 Estimated GFR (MDRD) 97 Glucose 100 Calcium 9.1 - Rads (name of study) RLE duplex US Relevant Findings:: Final report received, See rad report PD Medical Decision Making - ED course Complexity details: reviewed results, re-evaluated patient, considered differential, d/w patient ED course: Patient was sent from [facility] to rule out DVT with an ultrasound. Her ultrasound does not show any evidence of DVT. There are no significant lab abnormalities. Does not have any significant swelling on exam. Patient only screams when she is touched. It does not matter where she is touched. This appears to be her normal baseline. Patient denies any pain. No emergency medical condition at this time. When asked why she screams she states "because I can". She states it does not hurt. Will have her follow-up with her doctor for further care. This document was made in part using voice recognition software. While efforts are made to proofread this document, sound alike and grammatical errors may occur. Departure - Departure Disposition: 01 Home, Self Care Clinical Impression: Total body pain Condition: Good Instructions: ED Muscle Aching Follow-Up: Kylee Nguyen of [Primary Care Provider] - Comments: Your ultrasound today does not show any evidence of a DVT in the leg. Please follow-up with your doctor for further care. Continue your current medications at home. Return if you worsen. Forms: PCP List Discharge Date/Time: 08/06/23 13:50
[2023-08-06 11:33] LABS: BASOPHILS % (AUTO) 0.4 %; EOSINOPHILS # (AUTO) 0.2 10^3/uL (0.0-0.7); EOSINOPHILS % (AUTO) 3.1 %; HCT - HEMATOCRIT 41.8 % (37.0-47.0); HGB - HEMOGLOBIN 12.9 g/dL (12.0-16.0); LYMPHOCYTES # (AUTO) 2.6 10^3/uL (1.5-3.5); MEAN CORPUSCULAR HGB CONC 30.9 g/dL (32.0-36.0); MEAN CORPUSCULAR VOLUME 90.9 fL (81.0-99.0); MEAN PLATELET VOLUME 9.2 fL (7.9-10.8); MONOCYTES # (AUTO) 0.5 10^3/uL (0.0-1.0); MONOCYTES % (AUTO) 8.8 %; NEUTROPHILS # (AUTO) 2.1 10^3/uL (1.5-6.6); NEUTROPHILS % (AUTO) 39.3 %; PLT - PLATELET COUNT 297 10^3/uL (130-450); RED CELL DISTRIBUTION WIDTH 15.9 % (12.0-15.0); WHITE BLOOD COUNT 5.4 x10^3/uL (4.8-10.8)
[2023-08-06 11:42] LABS: INR 1.7 (0.8-1.2); PT - PROTHROMBIN TIME 18.6 secs (9.9-12.6)
[2023-08-06 11:50] LABS: CALCIUM 9.1 mg/dL (8.5-10.3); CREATININE 0.6 mg/dL (0.6-1.3)
[2023-08-06 12:07] VITALS: O2SAT 96
--- NOTE | 2023-08-06 12:21 | Ultrasound Report ---
PROCEDURE: Duplex Ext Veins Right INDICATIONS: RLE swelling per senior care TECHNIQUE: Real-time imaging, as well as color and pulse Doppler interrogation, were performed of the lower extr emity deep veins from the inguinal ligament to the popliteal fossa. Attempted visualization of the ca lf veins was performed. COMPARISON: None. FINDINGS: The deep veins are normally compressible, and free of intraluminal thrombus. Color and pu lse Doppler demonstrate normal phasic intraluminal flow. There is normal augmentation response to di stal compression maneuver. Lower leg and popliteal veins were not evaluated. IMPRESSION: No visualized DVT in the thigh. The popliteal and lower leg veins were not evaluated. Shant ty declined exam. Reviewed by: Tavo Jefferson MD on 08/06/2023 12:20 PM PST Approved by: Tavo Jeffersno MD on 08/06/2023 12:20 PM PST Station ID: [id number]
[2023-08-06 13:51] VITALS: BP 116/96
== END 2023-08-06 13:50 | disposition home or self-care (01) ==
LOC: EDUNIT# → ED 10:10
DX: R52 Pain, unspecified (principal); F03.90 Unspecified dementia, unspecified severity, without behavioral disturbance, psychotic disturbance, mood disturbance, and anxiety; I10 Essential (primary) hypertension; I48.91 Unspecified atrial fibrillation; Z86.718 Personal history of other venous thrombosis and embolism; Z79.01 Long term (current) use of anticoagulants
CPT/HCPCS: 36415; 80048; 85025; 85610; 99283; 99284

== ENCOUNTER 2023-08-06 13:51 | Outpatient (CLI) | payer MEDICARE | END 2023-08-06 13:52 | LOC: EMS 13:51 | PROVIDERS: ATTEND Emergency Medicine | DX: R41.0 Disorientation, unspecified (principal); Z74.01 Bed confinement status; F03.90 Unspecified dementia, unspecified severity, without behavioral disturbance, psychotic disturbance, mood disturbance, and anxiety | CPT/HCPCS: A0425; A0428 ==

== ENCOUNTER 2023-08-07 14:40 | Outpatient (CLI) | payer MEDICARE ==
[2023-08-07 14:47] LABS: BASOPHILS % (AUTO) 0.4 %; EOSINOPHILS # (AUTO) 0.1 10^3/uL (0.0-0.7); EOSINOPHILS % (AUTO) 1.5 %; HCT - HEMATOCRIT 43.1 % (37.0-47.0); HGB - HEMOGLOBIN 13.2 g/dL (12.0-16.0); LYMPHOCYTES # (AUTO) 2.4 10^3/uL (1.5-3.5); MEAN CORPUSCULAR HGB CONC 30.6 g/dL (32.0-36.0); MEAN CORPUSCULAR VOLUME 91.5 fL (81.0-99.0); MEAN PLATELET VOLUME 10.4 fL (7.9-10.8); MONOCYTES # (AUTO) 0.4 10^3/uL (0.0-1.0); MONOCYTES % (AUTO) 7.3 %; NEUTROPHILS # (AUTO) 2.3 10^3/uL (1.5-6.6); NEUTROPHILS % (AUTO) 44.4 %; RED BLOOD COUNT 4.71 10^6/uL (4.20-5.40); RED CELL DISTRIBUTION WIDTH 15.5 % (12.0-15.0); WHITE BLOOD COUNT 5.2 x10^3/uL (4.8-10.8)
[2023-08-07 15:17] LABS: ALBUMIN 3.8 g/dL (3.2-5.5); ALBUMIN/GLOBULIN RATIO 1.2 (1.0-2.2); BILIRUBIN,TOTAL 0.5 mg/dL (0.2-1.0); CALCIUM 9.2 mg/dL (8.5-10.3); CREATININE 0.6 mg/dL (0.6-1.3); POTASSIUM 4.4 mmol/L (3.5-4.5); TOTAL PROTEIN 6.9 g/dL (6.4-8.9)
[2023-08-07 15:20] LABS: THYROID STIMULATING HORMONE 2.4 uIU/mL (0.34-5.60)
[2023-08-07 15:38] LABS: PLATELET ESTIMATE, MANUAL NORMAL (130-450,000) (NORMAL); PLATELET MORPHOLOGY PLATELET CLUMPING (NORMAL)
[2023-08-07 15:39] LABS: RBC MORPHOLOGY (MULTIPLE) NORMAL APPEARANCE (NORMAL)
== END 2023-08-07 14:41 | disposition home or self-care (01) ==
LOC: LAB.R 14:40
PROVIDERS: ATTEND Registered Nurse
DX: I10 Essential (primary) hypertension (principal); I35.0 Nonrheumatic aortic (valve) stenosis; E03.9 Hypothyroidism, unspecified; I48.20 Chronic atrial fibrillation, unspecified; E55.9 Vitamin D deficiency, unspecified
CPT/HCPCS: 80053; 82306; 84439; 84443; 85025

== ENCOUNTER 2023-08-14 08:00 | Outpatient (CLI) | payer MEDICARE ==
[2023-08-14 17:54] LABS: BASOPHILS # (AUTO) 0.1 10^3/uL (0.0-0.1); BASOPHILS % (AUTO) 0.8 %; EOSINOPHILS # (AUTO) 0.1 10^3/uL (0.0-0.7); EOSINOPHILS % (AUTO) 1.9 %; HGB - HEMOGLOBIN 12.7 g/dL (12.0-16.0); LYMPHOCYTES # (AUTO) 2.7 10^3/uL (1.5-3.5); LYMPHOCYTES % (AUTO) 42.3 %; MEAN CORPUSCULAR HEMOGLOBIN 28.2 pg (27.0-31.0); MEAN CORPUSCULAR VOLUME 90.9 fL (81.0-99.0); MEAN PLATELET VOLUME 9.4 fL (7.9-10.8); MONOCYTES # (AUTO) 0.7 10^3/uL (0.0-1.0); MONOCYTES % (AUTO) 11.7 %; NEUTROPHILS # (AUTO) 2.7 10^3/uL (1.5-6.6); NEUTROPHILS % (AUTO) 42.7 %; PLT - PLATELET COUNT 360 10^3/uL (130-450); RED BLOOD COUNT 4.51 10^6/uL (4.20-5.40); RED CELL DISTRIBUTION WIDTH 15.9 % (12.0-15.0); WHITE BLOOD COUNT 6.3 x10^3/uL (4.8-10.8)
[2023-08-14 18:05] LABS: CALCIUM 9.2 mg/dL (8.5-10.3); CREATININE 0.6 mg/dL (0.6-1.3); POTASSIUM 4.6 mmol/L (3.5-4.5)
== END 2023-08-14 23:59 | disposition home or self-care (01) ==
LOC: LAB.R 08:00
PROVIDERS: ATTEND Registered Nurse
DX: I70.293 Other atherosclerosis of native arteries of extremities, bilateral legs (principal)
CPT/HCPCS: 80048; 85025

== ENCOUNTER 2023-08-21 08:00 | Outpatient (CLI) | payer MEDICARE ==
[2023-08-21 22:48] LABS: BASOPHILS % (AUTO) 0.3 %; EOSINOPHILS # (AUTO) 0.2 10^3/uL (0.0-0.7); EOSINOPHILS % (AUTO) 2.8 %; HCT - HEMATOCRIT 35.3 % (37.0-47.0); HGB - HEMOGLOBIN 11.2 g/dL (12.0-16.0); LYMPHOCYTES # (AUTO) 2.3 10^3/uL (1.5-3.5); LYMPHOCYTES % (AUTO) 35.2 %; MEAN CORPUSCULAR HEMOGLOBIN 28.9 pg (27.0-31.0); MEAN CORPUSCULAR HGB CONC 31.7 g/dL (32.0-36.0); MEAN PLATELET VOLUME 9.2 fL (7.9-10.8); MONOCYTES # (AUTO) 0.6 10^3/uL (0.0-1.0); MONOCYTES % (AUTO) 9.7 %; NEUTROPHILS # (AUTO) 3.4 10^3/uL (1.5-6.6); NEUTROPHILS % (AUTO) 51.7 %; PLT - PLATELET COUNT 322 10^3/uL (130-450); RED BLOOD COUNT 3.88 10^6/uL (4.20-5.40); RED CELL DISTRIBUTION WIDTH 16.3 % (12.0-15.0); WHITE BLOOD COUNT 6.5 x10^3/uL (4.8-10.8)
[2023-08-21 23:41] LABS: CALCIUM 9.1 mg/dL (8.5-10.3); CREATININE 0.6 mg/dL (0.6-1.3); POTASSIUM 4.1 mmol/L (3.5-4.5)
== END 2023-08-21 23:59 | disposition home or self-care (01) ==
LOC: LAB.R 08:00
PROVIDERS: ATTEND Registered Nurse
DX: T81.49XD Infection following a procedure, other surgical site, subsequent encounter (principal)
CPT/HCPCS: 80048; 85025

== ENCOUNTER 2023-08-28 10:49 | Outpatient (CLI) | payer MEDICARE, MEDICAID | END 2023-08-28 10:50 | disposition critical access hospital (66) | LOC: EMS 10:49 | DX: M25.551 Pain in right hip (principal); R10.31 Right lower quadrant pain; R41.0 Disorientation, unspecified | CPT/HCPCS: A0425; A0429 ==

== ENCOUNTER 2023-08-28 10:55 | Emergency (ER) | payer MEDICARE, MEDICAID ==
--- NOTE | 2023-08-28 11:03 | ED Physician Documentation ---
History of Present Illness - Stated complaint Stated Complaint: HIP PX - History obtained from History obtained from: Patient, Family, EMS - Additonal information Additional information: 78-year-old woman presents by ambulance from [facility]. She has a history of dementia, vascular disease with peripheral arterial disease and is on warfarin. She started complaining of leg pain today. There was no injury. History is limited from the patient due to dementia but her is at the bedside and report from EMS as well. PD PAST MEDICAL HISTORY - Past Medical History Cardiovascular: Congestive heart failure, Hypertension, High cholesterol, Deep vein thrombosis, Atrial fibrillation, Valve disorder Respiratory: None Neuro: Dementia, CVA HEENT: None - Past Surgical History Past Surgical History: Yes - Present Medications Home Medications: Ambulatory Orders Medication Instructions Recorded Confirmed Metoprolol Succinate 100 mg PO BID 06/04/23 08/06/23 Spironolactone [Aldactone] 25 mg PO DAILY 06/04/23 08/06/23 Acetaminophen [Tylenol] 650 mg PO Q6H PRN 07/03/23 08/06/23 Enoxaparin Sodium [Lovenox] 80 mg SQ BID 07/03/23 07/03/23 Mineral Oil [Mineral Oil Enema] 1 ea RC DAILY PRN 07/03/23 08/06/23 No122/Iron/Folic Acid 1 each PO DAILY 07/03/23 08/06/23 [ Multi Tablet] Senna [Senokot] 17.2 mg PO DAILY PRN 07/03/23 08/06/23 Torsemide 10 mg PO DAILY 07/03/23 08/06/23 Warfarin [Coumadin] 7.5 mg PO DAILY 07/03/23 08/06/23 polyethylene glycoL 3350 [Miralax] 17 gm PO DAILY PRN 07/03/23 08/06/23 Atorvastatin Calcium 1 tab PO DAILY 08/06/23 08/06/23 Bisacodyl Supp [Dulcolax Supp] 1 applic [place] PRN PRN 08/06/23 08/06/23 Lisinopril [Zestril] 1 tab PO DAILY 08/06/23 08/06/23 Nirmatrelvir/Ritonavir [Paxlovid 1 tab PO DAILY 08/06/23 08/06/23 300-100 mg Dose Pack] guaiFENesin [Chest Congestion 1 ml PO PRN PRN 08/06/23 08/06/23 Relief] oxyCODONE [Roxicodone] 5 mg PO Q4-6H PRN #30 tablet 08/28/23 - Allergies Allergies/Adverse Reactions: Allergies Allergy/AdvReac Type Severity Reaction Status Date / Time soy Allergy Cramps Verified 08/06/23 10:37 - Social History Does the pt smoke?: No Smoking Status: Never smoker Does the pt drink ETOH?: No Does the pt have substance abuse?: No - Immunizations Immunizations are current?: Yes - POLST Patient has POLST: Yes PD ED PE NORMAL - Vitals Vital signs reviewed: Yes - General General: No acute distress, Other (confused, baseline per ) - Extremities Extremities: Other (Her feet are warm and well-perfused, she has mild pain with internal and external rotation of the leg on the right. No obvious asymmetry or edema.) - Neuro Eye Opening: Spontaneous Motor: Obeys Commands Verbal: Oriented GCS Score: 15 Results - Vitals Vitals: Vital Signs - 24 hr 08/28/23 08/28/23 11:03 14:15 Temperature 36.8 C Heart Rate 97 89 Respiratory 20 20 Rate Blood Pressure 108/77 116/62 O2 Saturation 97 Oxygen O2 Source Room air - Rads (name of study) Right hip x-ray and DVT scan lower extremity Relevant Findings:: Final report received, EMP independent interpretation of test PD Medical Decision Making - ED course ED course: 78-year-old woman with dementia presents with lower extremity pain. No evidence of an acute arterial vascular issue as she has excellent pedal perfusion in the feet. DVT scan and hip x-rays were negative. This does seem to be a recurrent issue as she has been here with a lot of lower extremity pain in the past and the request the starting of a narcotic which has been considered for a long time. Departure - Departure Disposition: 01 Home, Self Care Clinical Impression: Pain of lower extremity Qualifiers: Laterality: right Qualified Code(s): M79.604 - Pain in right leg Condition: Good Record reviewed to determine appropriate education?: Yes Instructions: ED Muscle Pain Leg Cramps Prescriptions: oxyCODONE [Roxicodone] 5 mg PO Q4-6H PRN #30 tablet PRN Reason: Pain Comments: X-rays and ultrasound of the leg were negative/normal. We have noted an increasing frequency of yuliya visiting the emergency department for pain related complaints and I wrote a prescription for oxycodone and sent it to [facility]. Return for new or worsening symptoms. I am prescribing a short course of narcotic pain medication for you. These are potentially dangerous and addictive medications that should be used carefully. These medications may constipate you. Take an mlbj-ozs-[id number] stool softener (docusate) twice daily with plenty of water while taking these medications. If you go 24 hours without a bowel movement, take [id number] miralax, per package instructions. Do not drink or drive while taking these medications. If you received narcotic or sedating medications while in the emergency department, do not drive for 24 hours. Store this medication in a safe, secure place and out of reach of children. It is a violation of federal law to give or sell this medication to another person or to use in a manner other than prescribed. The ED will not refill narcotic prescriptions, including prescriptions lost or stolen. To dispose of unwanted medications: 1. [facility] provides a [facility] box for medication in pill form only (no liquids) 8:00 am to 4:30 p.m. Saturday-Saturday in the lobby of the [facility], [address] Empty pills into ziplock bag before disposal. Call [phone] for information. 2.[employer] is a free service available to all [facility] residents. Go to [email or web address] Note that many narcotic pain relievers also contain Tylenol/acetaminophen. Please ensure that your total dose of acetaminophen from all sources does not exceed 3 g (3000 mg) per day. Forms: PCP List Discharge Date/Time: 08/28/23 14:15
[2023-08-28 11:16] VITALS: O2SAT 97
--- NOTE | 2023-08-28 12:02 | XRAY Report ---
PROCEDURE: Femur 2+V RT INDICATIONS: leg pain TECHNIQUE: 2 views of the femur were acquired. COMPARISON: None. FINDINGS: Examination limited by body habitus and positioning factors. Bones: No fractures or dislocations. Knee arthroplasty has been performed. No suspicious bony lesio ns. Soft tissues: No suspicious soft tissue calcifications or masses. IMPRESSION: No acute fracture. No osseous lesion. If symptoms and/or clinical suspicion for pathology continue, further assessment with repeat plain films, or advanced imaging (e.g., CT, MRI, or bone sc an) is recommended for further assessment. Reviewed by: Ed Aguilar MD on 08/28/2023 12:01 PM PST Approved by: Ed Aguilar MD on 08/28/2023 12:01 PM PST Station ID: [id number]
[2023-08-28] MEDS: HYDROcod/ACETAM 5/325 MG TABLET PO STA (12:30)
--- NOTE | 2023-08-28 12:42 | Ultrasound Report ---
PROCEDURE: Duplex Ext Veins Right INDICATIONS: leg pain TECHNIQUE: Real-time imaging, as well as color and pulse Doppler interrogation, were performed of the lower extr emity deep veins from the inguinal ligament to the popliteal fossa. Attempted visualization of the ca lf veins was performed. COMPARISON: None. FINDINGS: The deep veins are normally compressible, and free of intraluminal thrombus. Color and pu lse Doppler demonstrate normal phasic intraluminal flow. There is normal augmentation response to di stal compression maneuver. Moderate right lower extremity soft tissue edema is seen. IMPRESSION: No deep venous thrombosis of the visualized lower extremity. Right lower extremity soft tissue edema. Reviewed by: Daniel Chilel MD on 08/28/2023 12:40 PM PST Approved by: Daniel Chilel MD on 08/28/2023 12:40 PM PST Station ID: [id number]
[2023-08-28 15:12] VITALS: BP 116/62
== END 2023-08-28 14:15 | disposition home or self-care (01) ==
LOC: EDUNIT# → ED 10:55 → SUPCPDRO 10:55 → ED 14:15
DX: M25.551 Pain in right hip (principal); F03.90 Unspecified dementia, unspecified severity, without behavioral disturbance, psychotic disturbance, mood disturbance, and anxiety; I10 Essential (primary) hypertension; I48.91 Unspecified atrial fibrillation; Z79.01 Long term (current) use of anticoagulants
CPT/HCPCS: 73552; 93971; 99284; A9270

== ENCOUNTER 2023-08-28 14:34 | Outpatient (CLI) | payer MEDICARE, MEDICAID | END 2023-08-28 14:35 | LOC: EMS 14:34 | PROVIDERS: ATTEND Emergency Medicine | DX: M25.551 Pain in right hip (principal); I69.359 Hemiplegia and hemiparesis following cerebral infarction affecting unspecified side; R53.1 Weakness; F03.90 Unspecified dementia, unspecified severity, without behavioral disturbance, psychotic disturbance, mood disturbance, and anxiety | CPT/HCPCS: A0425; A0428 ==

== ENCOUNTER 2023-09-04 08:00 | Outpatient (CLI) | payer MEDICARE, MEDICAID ==
[2023-09-04 16:44] LABS: CALCIUM 9.6 mg/dL (8.5-10.3); CREATININE 0.6 mg/dL (0.6-1.3); POTASSIUM 4.7 mmol/L (3.5-4.5)
[2023-09-04 17:01] LABS: BASOPHILS % (AUTO) 0.5 %; EOSINOPHILS # (AUTO) 0.1 10^3/uL (0.0-0.7); EOSINOPHILS % (AUTO) 1.1 %; HCT - HEMATOCRIT 38.2 % (37.0-47.0); HGB - HEMOGLOBIN 11.9 g/dL (12.0-16.0); LYMPHOCYTES # (AUTO) 2.2 10^3/uL (1.5-3.5); LYMPHOCYTES % (AUTO) 26.4 %; MEAN CORPUSCULAR HEMOGLOBIN 28.5 pg (27.0-31.0); MEAN CORPUSCULAR HGB CONC 31.2 g/dL (32.0-36.0); MEAN CORPUSCULAR VOLUME 91.6 fL (81.0-99.0); MEAN PLATELET VOLUME 8.7 fL (7.9-10.8); MONOCYTES # (AUTO) 0.7 10^3/uL (0.0-1.0); MONOCYTES % (AUTO) 8.3 %; NEUTROPHILS # (AUTO) 5.2 10^3/uL (1.5-6.6); NEUTROPHILS % (AUTO) 63.1 %; PLT - PLATELET COUNT 368 10^3/uL (130-450); RED BLOOD COUNT 4.17 10^6/uL (4.20-5.40); WHITE BLOOD COUNT 8.2 x10^3/uL (4.8-10.8)
== END 2023-09-04 23:59 | disposition home or self-care (01) ==
LOC: LAB.R 08:00
PROVIDERS: ATTEND Registered Nurse
DX: I10 Essential (primary) hypertension (principal); I48.20 Chronic atrial fibrillation, unspecified
CPT/HCPCS: 80048; 85025

== ENCOUNTER 2023-09-10 11:48 | Outpatient (CLI) | payer MEDICARE, MEDICAID ==
[2023-09-10 11:56] LABS: BASOPHILS % (AUTO) 0.5 %; EOSINOPHILS # (AUTO) 0.1 10^3/uL (0.0-0.7); HCT - HEMATOCRIT 37.8 % (37.0-47.0); HGB - HEMOGLOBIN 11.6 g/dL (12.0-16.0); LYMPHOCYTES # (AUTO) 1.7 10^3/uL (1.5-3.5); LYMPHOCYTES % (AUTO) 31.9 %; MEAN CORPUSCULAR HEMOGLOBIN 28.9 pg (27.0-31.0); MEAN CORPUSCULAR HGB CONC 30.7 g/dL (32.0-36.0); MEAN CORPUSCULAR VOLUME 94.3 fL (81.0-99.0); MEAN PLATELET VOLUME 8.9 fL (7.9-10.8); MONOCYTES # (AUTO) 0.4 10^3/uL (0.0-1.0); MONOCYTES % (AUTO) 7.1 %; NEUTROPHILS # (AUTO) 3.2 10^3/uL (1.5-6.6); NEUTROPHILS % (AUTO) 58.1 %; PLT - PLATELET COUNT 327 10^3/uL (130-450); RED BLOOD COUNT 4.01 10^6/uL (4.20-5.40); WHITE BLOOD COUNT 5.5 x10^3/uL (4.8-10.8)
[2023-09-10 12:18] LABS: ALBUMIN 3.5 g/dL (3.2-5.5); ALBUMIN/GLOBULIN RATIO 1.3 (1.0-2.2); BILIRUBIN,TOTAL 0.4 mg/dL (0.2-1.0); CALCIUM 8.9 mg/dL (8.5-10.3); CREATININE 0.5 mg/dL (0.6-1.3); POTASSIUM 3.7 mmol/L (3.5-4.5); TOTAL PROTEIN 6.1 g/dL (6.4-8.9)
== END 2023-09-10 11:49 | disposition home or self-care (01) ==
LOC: LAB.R 11:48
PROVIDERS: ATTEND Registered Nurse
DX: I10 Essential (primary) hypertension (principal); I48.20 Chronic atrial fibrillation, unspecified
CPT/HCPCS: 80053; 85025

== ENCOUNTER 2023-09-12 08:00 | Outpatient (CLI) | payer MEDICARE, MEDICAID ==
[2023-09-12 23:19] LABS: BILIRUBIN,URINE NEGATIVE (NEGATIVE); GLUCOSE, URINE (UA) NEGATIVE (NEGATIVE); KETONES,URINE (UA) NEGATIVE (NEGATIVE); LEUKOCYTE ESTERASE, URINE NEGATIVE (NEGATIVE); NITRITE,URINE NEGATIVE (NEGATIVE); OCCULT BLOOD,URINE NEGATIVE (NEGATIVE); PROTEIN,URINE NEGATIVE (NEGATIVE); UROBILINOGEN,URINE 0.2 (NORMAL) E.U./dL (NORMAL)
[2023-09-12 23:22] LABS: CLARITY,URINE CLEAR (CLEAR)
== END 2023-09-12 23:59 | disposition home or self-care (01) ==
LOC: LAB.R 08:00
DX: N39.0 Urinary tract infection, site not specified (principal)
CPT/HCPCS: 81001; 81003

== ENCOUNTER 2023-10-23 08:00 | Outpatient (CLI) | payer OTHER ==
[2023-10-23 17:11] LABS: BASOPHILS % (AUTO) 0.3 %; EOSINOPHILS # (AUTO) 0.1 10^3/uL (0.0-0.7); EOSINOPHILS % (AUTO) 1.2 %; HGB - HEMOGLOBIN 14.1 g/dL (12.0-16.0); LYMPHOCYTES # (AUTO) 2.3 10^3/uL (1.5-3.5); LYMPHOCYTES % (AUTO) 35.2 %; MEAN CORPUSCULAR HEMOGLOBIN 30.3 pg (27.0-31.0); MEAN CORPUSCULAR VOLUME 94.6 fL (81.0-99.0); MEAN PLATELET VOLUME 9.2 fL (7.9-10.8); MONOCYTES # (AUTO) 0.4 10^3/uL (0.0-1.0); MONOCYTES % (AUTO) 6.7 %; NEUTROPHILS # (AUTO) 3.7 10^3/uL (1.5-6.6); NEUTROPHILS % (AUTO) 56.4 %; PLT - PLATELET COUNT 292 10^3/uL (130-450); RED BLOOD COUNT 4.65 10^6/uL (4.20-5.40); WHITE BLOOD COUNT 6.6 x10^3/uL (4.8-10.8)
[2023-10-23 17:28] LABS: ALBUMIN 4.4 g/dL (3.2-5.5); ALBUMIN/GLOBULIN RATIO 1.7 (1.0-2.2); BILIRUBIN,TOTAL 0.4 mg/dL (0.2-1.0); CALCIUM 9.7 mg/dL (8.5-10.3); CREATININE 0.6 mg/dL (0.6-1.3); POTASSIUM 4.1 mmol/L (3.5-4.5)
== END 2023-10-23 23:59 | disposition home or self-care (01) ==
LOC: LAB.R 08:00
PROVIDERS: ATTEND Registered Nurse
DX: I11.0 Hypertensive heart disease with heart failure (principal); I50.42 Chronic combined systolic (congestive) and diastolic (congestive) heart failure; Z79.01 Long term (current) use of anticoagulants; I48.20 Chronic atrial fibrillation, unspecified
CPT/HCPCS: 80053; 85025

== ENCOUNTER 2023-11-22 11:19 | Outpatient (CLI) | payer MEDICARE, MEDICAID ==
[2023-11-22 11:26] LABS: BASOPHILS % (AUTO) 0.4 %; EOSINOPHILS % (AUTO) 0.8 %; HCT - HEMATOCRIT 43.3 % (37.0-47.0); HGB - HEMOGLOBIN 13.6 g/dL (12.0-16.0); LYMPHOCYTES # (AUTO) 1.6 10^3/uL (1.5-3.5); MEAN CORPUSCULAR HGB CONC 31.4 g/dL (32.0-36.0); MEAN CORPUSCULAR VOLUME 95.6 fL (81.0-99.0); MEAN PLATELET VOLUME 9.1 fL (7.9-10.8); MONOCYTES # (AUTO) 0.4 10^3/uL (0.0-1.0); MONOCYTES % (AUTO) 7.1 %; NEUTROPHILS # (AUTO) 3.2 10^3/uL (1.5-6.6); NEUTROPHILS % (AUTO) 60.5 %; PLT - PLATELET COUNT 248 10^3/uL (130-450); RED BLOOD COUNT 4.53 10^6/uL (4.20-5.40); WHITE BLOOD COUNT 5.2 x10^3/uL (4.8-10.8)
[2023-11-22 11:40] LABS: CALCIUM 9.6 mg/dL (8.5-10.3); CREATININE 0.6 mg/dL (0.6-1.3)
== END 2023-11-22 11:20 | disposition home or self-care (01) ==
LOC: LAB.R 11:19
PROVIDERS: ATTEND Registered Nurse
DX: I11.0 Hypertensive heart disease with heart failure (principal); I50.43 Acute on chronic combined systolic (congestive) and diastolic (congestive) heart failure; E85.89 Other amyloidosis
CPT/HCPCS: 80048; 83880; 85025

== ENCOUNTER 2023-11-25 08:00 | Outpatient (CLI) | payer MEDICARE, MEDICAID | END 2023-11-25 23:59 | disposition home or self-care (01) | LOC: LAB.R 08:00 | DX: I50.43 Acute on chronic combined systolic (congestive) and diastolic (congestive) heart failure (principal) | CPT/HCPCS: 83880 ==